=== PATIENT | female | born 1975 | race Caucasian/White ===

== ENCOUNTER 2016-06-17 00:01 | Emergency (ER) | payer OTHER ==
[2016-06-17 00:08] VITALS: BP 129/77; PULSE 92; TEMP 97.4; BMI 30.7
--- NOTE | 2016-06-17 00:15 | PDOC ---
History of Present Illness - General Stated Complaint: TAMPON STUCK INSIDE Time Seen by Provider: 06/17/16 00:06 History Source: Patient Exam Limitations: No Limitations - History of Present Illness Initial Comments: 06/17/16 00:11 This is a 41-year-old female who comes in complaining that she has a tampon stuck in her vagina and can't get developed. Patient denies any other complaints. Patient said she put the tampon in this afternoon and thought she took about the wasn't sure's and couldn't find so she came in for evaluation . PAST MEDICAL HISTORY: no significant history PAST SURGICAL HISTORY: no significant history FAMILY HISTORY: no pertinant history SOCIAL HISTORY: Pt lives with family and is employed. MEDICATIONS: reviewed ALLERGIES: As per nursing notes Review of Systems General: No fevers or chills, no weakness, no weight loss HEENT: No change in vision. No sore throat,. No ear pain CardioVascular: No chest pain or shortness of breath Respiratory:No cough, or wheezing. Gastrointestinal: no nausea, vomitting, diarrhea or constipation, No rectal bleeding Genitourinary: No dysuria, hematuria, or frequency, tempon stuckas per history of present illness Musculoskeletal: No joint or muscle pain or swelling Neurologic: No headache, vertigo, dizziness or loss of consciousness Psychiatric: nor depression Skin: No rashes or easy bruising Endocrine: no increased thirst or abnormal weight change Allergic: no skin or latex allergy All other systems reviewed and normal GENERAL: The patient is awake, alert, and fully oriented, in no acute distress. HEAD: Normal with no signs of trauma. EYES: Pupils equal, round and reactive to light, extraocular movements intact, sclera anicteric, conjunctiva clear. EXTREMITIES: Normal range of motion, no edema. Vaginal exam: There is no tampon on visible on speculum exam. NEUROLOGICAL: Normal speech, normal gait. PSYCH: Normal mood, normal affect. SKIN: Warm, Dry, normal turgor, no rashes or lesions noted. Assessment and plan: This is a 41-year-old female who thought she had a retained tampon vaginally however there was no tampon visible on exam. Patient was reassured that there was no tampon there and discharged. Past History - Past Medical History Allergies/Adverse Reactions: Allergies Allergy/AdvReac Type Severity Reaction Status Date / Time No Known Allergies Allergy Verified 06/17/16 00:03 Home Medications: Ambulatory Orders NK [No Known Home Medication] 06/17/16 Other medical history: DENIES - Psycho/Social/Smoking Cessation Hx Anxiety: No Suicidal Ideation: No Smoking History: Current some day smoker Have you smoked in the past 12 months: Yes Information on smoking cessation initiated: No 'Breaking Loose' booklet given: 06/17/16 Hx Alcohol Use: Yes Drug/Substance Use Hx: No Substance Use Type: None *Physical Exam - Vital Signs Last Vital Signs Temp Pulse Resp BP Pulse Ox 97.4 F L 92 H 16 129/77 98 06/17/16 00:04 06/17/16 00:04 06/17/16 00:04 06/17/16 00:04 06/17/16 00:04 *DC/Admit/Observation/Transfer Diagnosis at time of Disposition: Retained vaginal foreign body Qualifiers: Encounter type: initial encounter Qualified Code(s): T19.2XXA - Foreign body in vulva and vagina, initial encounter - Discharge Dispostion Disposition: HOME Condition at time of disposition: Stable Admit: No - Patient Instructions Additional Instructions: Return to the emergency department immediately with ANY new, persistent or worsening symptoms. Continue any medications as previously prescribed by your physician. You should follow up with your primary doctor as soon as possible regarding today's emergency department visit. . Please make sure your doctor reviews the results of your emergency evaluation. Thank you for coming to the Emergency Department today for your care. It was a pleasure to see you today. Please note that your evaluation is INCOMPLETE until you follow-up with your doctor.
== END 2016-06-17 00:16 | disposition home or self-care (01) ==
LOC: FER 00:01
DX: T19.2XXA Foreign body in vulva and vagina, initial encounter (principal); X58.XXXA Exposure to other specified factors, initial encounter; Y93.9 Activity, unspecified; F17.210 Nicotine dependence, cigarettes, uncomplicated
CPT/HCPCS: 99281-25

== ENCOUNTER 2017-07-22 21:53 | Emergency (ER) | payer OTHER ==
[2017-07-22 22:05] VITALS: BP 124/82; PULSE 103; TEMP 97.5; BMI 30.7
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
== END 2017-07-22 23:28 | disposition home or self-care (01) ==
LOC: FER 21:53
DX: F10.920 Alcohol use, unspecified with intoxication, uncomplicated (principal)
CPT/HCPCS: 99282-25